=== PATIENT | male | born 1980 | race Caucasian/White ===

== ENCOUNTER 2016-11-28 10:38 | Emergency (ER) | payer OTHER ==
--- NOTE | 2016-11-28 11:50 | RAD ---
LEFT ANKLE 3 VIEWS HISTORY: Posterior ankle pain status post injury. COMPARISONS: None. TECHNIQUE: Frontal, lateral, and oblique views of the left ankle. ALIGNMENT: Grossly unremarkable. Ankle mortise intact. FRACTURE: No displaced acute fracture. Findings suggesting remote medial malleoli are injury. SOFT TISSUES: Posterior soft tissue thickening adjacent to a posterior calcaneal enthesophyte. RADIOOPAQUE FOREIGN BODY: None. DEGENERATIVE CHANGE: Dorsal osteophytes of the midfoot. IMPRESSION: Posterior soft tissue swelling, correlate for Achilles tendinopathy. No malalignment or displaced acute fracture.
[2016-11-28] MEDS ORDERED: OXYCODONE HCL 5 MG TABLET ONE (12:11)
== END 2016-11-28 12:42 | disposition home or self-care (01) ==
LOC: ED 10:38
DX: S86.012A Strain of left Achilles tendon, initial encounter (principal); F17.220 Nicotine dependence, chewing tobacco, uncomplicated; W01.198A Fall on same level from slipping, tripping and stumbling with subsequent striking against other object, initial encounter; Y92.9 Unspecified place or not applicable
CPT/HCPCS: 73610; 99283 ×2; 29515; A9270